=== PATIENT | female | born 1975 | race Caucasian/White ===

== ENCOUNTER 2018-06-06 11:04 | Inpatient (IN) | payer BC, OTHER ==
[~2018-06-06 11:04] MED LIST: CEFAZOLIN 1 GM INJ; DESFLURANE 15 MIN; DEXAMETHASONE 4 MG/ML 5 ML INJ; METOCLOPRAMIDE 10 MG INJ; PROPOFOL 200 MG INJ
[2018-06-06] MEDS ORDERED: MIDAZOLAM 1 MG/ML 2 ML INJ (14:48)
[2018-06-06] MEDS ORDERED: FENTAnyl 50 MCG/ML VIAL ×2 (14:48→16:39)
[2018-06-06] MEDS ORDERED: HYDROmorphONE 2 MG/ML SYG (14:56)
[2018-06-06] MEDS ORDERED: PROPOFOL 20 ML (14:57)
[2018-06-06] MEDS ORDERED: LIDOCAINE 2% (SDV) 5 ML INJ (14:57)
[2018-06-06] MEDS ORDERED: ROCURONIUM 50 MG INJ (15:00)
[2018-06-06] MEDS ORDERED: SUCCINYLCHOLINE CHLORIDE 100 MG/5 ML SYG IV (15:00)
[2018-06-06] MEDS ORDERED: ONDANSETRON 4 MG INJ (15:00)
[2018-06-06] MEDS ORDERED: HEPARIN 1000 UNITS/ML 10 ML INJ (15:11)
[2018-06-06] MEDS ORDERED: POLYMYXIN/BACITRACIN 1L IRRIG (15:11)
[2018-06-06] MEDS ORDERED: AL HYDROX/MG HYDROX/SIMETH 30 ML CUP PO (15:30)
[2018-06-06] MEDS ORDERED: DIPHENHYDRAMINE 50 MG INJ IV ×2 (15:30→16:00)
[2018-06-06] MEDS ORDERED: ACETAMINOPHEN 325 MG TAB PO (15:30)
[2018-06-06] MEDS ORDERED: HYDROCODONE/APAP (10/325) TAB PO (15:30)
[2018-06-06] MEDS ORDERED: METHOCARBAMOL 750 MG TAB PO (15:30)
[2018-06-06] MEDS ORDERED: NALOXONE (0.4 MG/ML) INJ IV (15:30)
[2018-06-06] MEDS ORDERED: HYDROmorphONE 0.5 MG/0.5 ML SYG IV (15:30)
[2018-06-06] MEDS ORDERED: DIPHENHYDRAMINE 25 MG CAP PO (15:30)
[2018-06-06] MEDS: CEFAZOLIN 1 GM/50 ML (PMX) 50 ML IVPB (15:30)
[2018-06-06] MEDS ORDERED: BISACODYL 10 MG SUPP PR (15:30)
[2018-06-06] MEDS ORDERED: FENTAnyl 50 MCG/ML VIAL IV (16:00)
[2018-06-06] MEDS ORDERED: hydrALAzine 20 MG INJ IV (16:00)
[2018-06-06] MEDS ORDERED: HYDROmorphONE 1 MG/5 ML IV SYRINGE IV ×3 (16:00)
[2018-06-06] MEDS ORDERED: LABETALOL HCL 20MG INJ IV (16:00)
[2018-06-06] MEDS ORDERED: IPRATROPIUM (NEB) 0.5 MG/2.5 ML AMP HHN (16:00)
[2018-06-06] MEDS ORDERED: ONDANSETRON 4 MG INJ IV (16:00)
[2018-06-06] MEDS ORDERED: LEVALBUTEROL (NEB) 1.25 MG/0.5 ML AMP HHN (16:00)
[2018-06-06] MEDS ORDERED: METOPROLOL 5 MG INJ (16:39)
[2018-06-06] MEDS ORDERED: THROMBIN 5000 UNIT VIAL (17:13)
[2018-06-06] MEDS: BUPIVACAINE 0.5%/EPI (SDV) 30 ML INJ (17:37)
[2018-06-06] MEDS: THROMBIN 5000 UNIT VIAL (17:38)
[2018-06-06] MEDS: GELATIN SIZE 100 SPONGE (17:39)
[2018-06-06] MEDS: SURGIFOAM POWDER 1 GM KIT (17:40)
[2018-06-06] MEDS: ONDANSETRON 4 MG INJ IV (19:25)
[2018-06-06] MEDS: HYDROmorphONE 0.2 MG/ML PCA IV (19:25)
[2018-06-06] MEDS: FENTAnyl 50 MCG/ML VIAL IV ×2 (19:26→19:50)
[2018-06-06] MEDS: MEPERIDINE 25 MG INJ IV (20:20)
[2018-06-06] MEDS: D5W-0.45 NACL + KCL 20 MEQ 1,000 ML IV (22:21)
[2018-06-06] MEDS: DOCUSATE SODIUM 100 MG CAP PO (22:48)
[2018-06-06] MEDS: CEPASTAT LOZENGE MT (22:48)
[2018-06-07] MEDS: CEFAZOLIN 1 GM/50 ML (PMX) 50 ML IVPB ×2 (00:06→07:51)
[2018-06-07] MEDS: D5W-0.45 NACL + KCL 20 MEQ 1,000 ML IV (01:23)
[2018-06-07] MEDS: HYDROmorphONE 0.2 MG/ML PCA IV (05:13)
[2018-06-07] MEDS: PANTOPRAZOLE 40 MG INJ IV (05:17)
[2018-06-07 05:29] LABS: ADD MAN DIFF? NO
[2018-06-07 05:42] LABS: WHITE BLOOD COUNT 16.8 10^3/ul (4.8-10.8)
[2018-06-07 05:42] LABS: BASOPHILS % 0.1 % (0.0-2.0); EOSINOPHILS % 0.2 % (0.0-7.0); HEMATOCRIT 33.6 % (37.0-47.0); HEMOGLOBIN 10.9 g/dl (12.0-16.0); LYMPHOCYTES % 6.1 % (15.0-51.0); MEAN CORPUSCULAR HEMOGLOBIN 28.9 pg (29.0-33.0); MEAN CORPUSCULAR HGB CONC 32.4 g/dl (32.0-37.0); MEAN CORPUSCULAR VOLUME 89.1 fl (82.0-101.0); MEAN PLATELET VOLUME 9.1 fl (7.4-10.4); MONOCYTES % 5.6 % (0.0-11.0); NEUTROPHIL # 14.7 10^3/ul (1.6-7.5); NEUTROPHILS % 87.5 % (39.0-77.0); PLATELET COUNT 380 10^3/UL (140-415); RED BLOOD COUNT 3.77 10^6/ul (4.20-5.40); RED CELL DISTRIBUTION WIDTH 14.6 % (11.5-14.5)
[2018-06-07 06:11] LABS: ANION GAP 6 (5-13); BLOOD UREA NITROGEN 9 mg/dl (7-20); CALCIUM 8.6 mg/dl (8.4-10.2); CARBON DIOXIDE 29 mmol/L (21-31); CHLORIDE 99 mmol/L (97-110); CREATININE 0.67 mg/dl (0.44-1.00); Estimated GFR > 60 mL/min (>60); MAGNESIUM 1.7 mg/dl (1.7-2.5); POTASSIUM 3.1 mmol/L (3.5-5.1); SODIUM 134 mmol/L (135-144)
[2018-06-07 06:17] LABS: GLUCOSE 133 mg/dl (70-220)
[2018-06-07] MEDS: DOCUSATE SODIUM 100 MG CAP PO (08:45)
[2018-06-07] MEDS: POTASSIUM CHLORIDE (SR) 20 MEQ TAB PO (08:49)
[2018-06-07] MEDS: ONDANSETRON 4 MG INJ IV (09:30)
[2018-06-07] MEDS: HYDROCODONE/APAP (10/325) TAB PO (09:58)
== END 2018-06-07 13:17 | disposition home or self-care (01) | DRG 473 ==
LOC: REC 11:04 → MS1 20:00
PROC: 0RG20A0 Fusion of 2 or more Cervical Vertebral Joints with Interbody Fusion Device, Anterior Approach, Anterior Column, Open Approach (ICD-10-PCS; principal; 2018-06-06 13:00)
PROC: 0RT30ZZ Resection of Cervical Vertebral Disc, Open Approach (ICD-10-PCS; 2018-06-06 13:00)
PROC: 4A11X4G Monitoring of Peripheral Nervous Electrical Activity, Intraoperative, External Approach (ICD-10-PCS; 2018-06-06 13:00)
DX: M50.121 Cervical disc disorder at C4-C5 level with radiculopathy (principal); M48.02 Spinal stenosis, cervical region
CPT/HCPCS: 72052; 80048; 83735; 85025; 88304; 97116; 97161